=== PATIENT | male | born 1960 | race Caucasian/White ===

== ENCOUNTER 2017-08-29 19:06 | Emergency (ER) | payer BC ==
[~2017-08-29] VITALS: Ht 177.8 cm; Wt 78.4 kg
[2017-08-29 19:48] LABS: HEMATOCRIT 39.7 % (38.0-50.0); HEMOGLOBIN 13.4 G/DL (12.5-16.6); MCH 31.5 PG (29.0-34.0); MCHC 33.8 G/DL (30.0-36.0); MCV 93.2 FL (86-99); PLATELET COUNT 255 K/uL (156-360); RBC DIS.WIDTH-CV 12.2 % (11.8-14.6); RBC DIS.WIDTH-SD 41.9 % (39-53); RED BLOOD COUNT 4.26 M/uL (4.00-5.50); WHITE BLOOD COUNT 14.8 K/uL (4.1-10.2)
[2017-08-29 19:58] LABS: CHLORIDE 101 mEq/L (99-109); POTASSIUM 3.6 mEq/L (3.7-5.4); SODIUM 137 mEq/L (136-147)
[2017-08-29 19:59] LABS: GLUCOSE 108 mg/dL (70-99)
[2017-08-29 20:03] LABS: GFR ESTIMATE (CALCULATED) > 59 mL/min/ (58.99-99999)
[2017-08-29 20:04] LABS: UREA NITROGEN (BUN) 14 mg/dL (9-23)
[2017-08-30] MEDS ORDERED: ANTIVERT25 MG PO (02:46)
[2017-08-30] MEDS ORDERED: MUCINEX1200 MG PO (02:46)
[2017-08-30] MEDS ORDERED: PREDNISONE20 MG PO (02:46)
[2017-08-30] MEDS ORDERED: VENTOLIN HFA18 GM IH (02:46)
[2017-08-30] MEDS ORDERED: LEVAQUIN500 MG PO (02:46)
[2017-08-30 03:03] VITALS: BP 144/109
== END 2017-08-30 03:24 | disposition home or self-care (01) ==
LOC: EME 19:06
DX: M54.2 Cervicalgia (principal); J18.0 Bronchopneumonia, unspecified organism; R42 Dizziness and giddiness; Z90.49 Acquired absence of other specified parts of digestive tract
CPT/HCPCS: 70450; 70498; 71020; 71275; 80048; 85027; 93005; 99281; 99284; J7512